=== PATIENT | male | born 1975 | race Caucasian/White ===

== ENCOUNTER 2016-10-08 14:12 | Inpatient (IN) | payer OTHER ==
[~2016-10-08] VITALS: Ht 175.3 cm; Wt 59.9 kg
--- NOTE | ~2016-10-08 | WRIGHTHP ---
[place], [place] PATIENT HISTORY AND PHYSICAL EXAM [facility]: [id number] UN[facility] #: [id number] ROOM: 420 DOCTOR: JOANIE SWIFT DO BIRTHDATE: [birth year] DOS: 10/08/2016 PRIMARY CARE PHYSICIAN: Dr. Monalisa Keating. The patient was seen and evaluated with the resident on 10/08/2016. Please see the resident's note for further details. ASSESSMENT: 1. Opiate dependence with acute withdrawal. 2. Heroin abuse in the form of snorting the drug. 3. Mild leukocytosis. 4. Normocytic anemia. 5. Chronic back pain. 6. Tobacco abuse. PLAN: Continue medical stabilization with the current protocol. Continue supportive care. JOANIE SWIFT DO CM:HISPHYS:PATIENT HISTORY AND PHYSICAL EXAMINATION [id number] JOANIE SWIFT DO 10/08/16 1650 interface
[2016-10-08] MEDS ORDERED: CYCLOBENZAPRINE10 MG PO (15:37)
[2016-10-08] MEDS ORDERED: NEURONTIN300 MG PO (15:38)
[2016-10-08] MEDS ORDERED: MOTRIN 600 MG E4 TAB PO (15:38)
[2016-10-08 15:45] LABS: BASO # 0.1 10*3/uL (0.0-0.1); BASO % 0.4 % (0.0-1.0); EOS # 0.1 10*3/uL (0.0-0.4); EOS % 0.4 % (1.0-4.0); HEMATOCRIT 40.2 % (42.0-52.0); HEMOGLOBIN 13.2 g/dl (14.0-18.0); LYMPH # 1.8 10*3/uL (1.3-4.4); LYMPH % 12.8 % (27.0-41.0); MEAN CELL VOLUME 85.4 fl (80.0-94.0); MEAN CORPUSCULAR HGB CONC 32.8 g/dl (33.0-37.0); MONO # 0.7 10*3/uL (0.1-1.0); MONO % 5.1 % (3.0-9.0); NEUT # 11.1 10*3/uL (2.3-7.9); PLATELET COUNT AUTOMATED 345 10*3/uL (130-400); RED BLOOD COUNT 4.71 10*6/uL (4.50-5.90); RED CELL DISTRI WIDTH 12.3 % (0-14.5); WHITE BLOOD COUNT 13.7 10*3/uL (4.8-10.8)
[2016-10-08 15:54] LABS: INTERNATIONAL NORM RATIO 0.9 (2.0-3.5)
[2016-10-08 16:00] VITALS: BP 134/76
[2016-10-08 16:05] LABS: ALBUMIN 3.8 gm/dl (3.1-4.5); ALKALINE PHOSPHATASE 72 U/L (45-117); BILIRUBIN, TOTAL 0.4 mg/dl (0.2-1.0); BUN 8 mg/dl (7-24); CARBON DIOXIDE 26 mmol/L (21-32); CHLORIDE 107 mmol/L (98-107); EST GLOM FILT AFRICAN AMERICAN > 60 ml/min; GLUCOSE 109 mg/dL (65-99); POTASSIUM 3.9 mmol/L (3.5-5.1); SGOT/AST 25 IU/L (3-35); SGPT/ALT 35 U/L (12-78); SODIUM 142 mmol/L (136-145); TOTAL PROTEIN 7.3 gm/dL (6.4-8.2)
[2016-10-08 18:08] LABS: BILIRUBIN NEGATIVE (NEGATIVE); BLOOD NEGATIVE (NEGATIVE); CLARITY CLEAR (CLEAR); COLOR YELLOW (YELLOW); GLUCOSE NEGATIVE (NEGATIVE); KETONE NEGATIVE (NEGATIVE); LEUKO ESTERASE NEGATIVE (NEGATIVE); NITRITE NEGATIVE (NEGATIVE); PROTEIN NEGATIVE (NEGATIVE); SPECIFIC GRAVITY <= 1.005 (1.005-1.030); UROBILINOGEN 0.2 E.U./dl (0.2-1.0)
[2016-10-08 18:17] LABS: URINE AMPHETAMINES < 1000 (1000ng/ml); URINE BARBITURATES < 200 (200ng/ml); URINE COCAINE < 300 (300ng/ml)
[2016-10-08 18:30] LABS: RBC 0-2 rbc/hpf (0-2); URINE REFLEX COMMENT NO (NO)
[2016-10-08 20:00] VITALS: BP 124/63
[2016-10-09] VITALS: BP 133/67
[2016-10-09 04:00] VITALS: BP 118/66
[2016-10-09 08:00] VITALS: BP 119/70
[2016-10-09 12:00] VITALS: BP 120/71
[2016-10-09 16:00] VITALS: BP 130/69
[2016-10-09 20:00] VITALS: BP 125/70
[2016-10-10] VITALS: BP 130/66
[2016-10-10 06:06] LABS: BASO # 0.1 10*3/uL (0.0-0.1); BASO % 0.6 % (0.0-1.0); EOS # 0.4 10*3/uL (0.0-0.4); EOS % 2.4 % (1.0-4.0); HEMATOCRIT 40.1 % (42.0-52.0); HEMOGLOBIN 12.8 g/dl (14.0-18.0); IG # 0.1 10*3/uL (0.0-0.1); LYMPH # 4.2 10*3/uL (1.3-4.4); LYMPH % 28.7 % (27.0-41.0); MEAN CORPUSCULAR HGB 27.8 pg (27.0-31.0); MEAN CORPUSCULAR HGB CONC 31.9 g/dl (33.0-37.0); MEAN PLATELET VOLUME 10.1 fl (9.6-12.3); MONO # 1.2 10*3/uL (0.1-1.0); MONO % 8.3 % (3.0-9.0); NEUT # 8.8 10*3/uL (2.3-7.9); NEUT % 59.7 % (47.0-73.0); PLATELET COUNT AUTOMATED 343 10*3/uL (130-400); RED BLOOD COUNT 4.61 10*6/uL (4.50-5.90); RED CELL DISTRI WIDTH 12.4 % (0-14.5); WHITE BLOOD COUNT 14.8 10*3/uL (4.8-10.8)
[2016-10-10 08:00] VITALS: BP 108/68
[2016-10-10 16:00] VITALS: BP 124/69
[2016-10-10 20:00] VITALS: BP 114/52
[2016-10-11] VITALS: BP 123/71
[2016-10-11 08:00] VITALS: BP 132/74
[2016-10-11] MEDS ORDERED: ZOFRAN 4 MG ED2 TAB PO (08:16)
[2016-10-11] MEDS ORDERED: TRAZODONE50 MG PO (08:16)
[2016-10-11] MEDS ORDERED: ATARAX,VISTARIL50 MG PO (08:16)
[2016-10-11] MEDS ORDERED: CARBIDOPA/LEVOD1 TA1 PO (08:16)
== END 2016-10-11 10:33 | disposition home or self-care (01) | DRG 897 ==
LOC: 4E 14:12
PROVIDERS: Emergency Medicine; Internal Medicine
DX: F11.23 Opioid dependence with withdrawal (principal); F32.9 Major depressive disorder, single episode, unspecified; R10.9 Unspecified abdominal pain; R03.0 Elevated blood-pressure reading, without diagnosis of hypertension; D72.825 Bandemia; D64.9 Anemia, unspecified; M54.9 Dorsalgia, unspecified; R73.9 Hyperglycemia, unspecified; D72.829 Elevated white blood cell count, unspecified; F17.210 Nicotine dependence, cigarettes, uncomplicated; Z71.6 Tobacco abuse counseling